=== PATIENT | male | born 1995 | race Two or more races ===

== ENCOUNTER 2017-03-21 14:22 | Emergency (ER) | payer MEDICAID, OTHER ==
[~2017-03-21] VITALS: Ht 175.3 cm; Wt 76.2 kg
[2017-03-21 14:45] VITALS: BP 126/64
[2017-03-21] MEDS ORDERED: IBUPROFEN 800 MG TAB PO ONE (15:45)
== END 2017-03-21 15:44 | disposition home or self-care (01) ==
LOC: EDBD 14:22 → ER 14:22
DX: S63.502A Unspecified sprain of left wrist, initial encounter (principal); V49.49XA Driver injured in collision with other motor vehicles in traffic accident, initial encounter; Y93.89 Activity, other specified; Y99.8 Other external cause status; Y92.410 Unspecified street and highway as the place of occurrence of the external cause
CPT/HCPCS: 73110